=== PATIENT | female | born 1955 | race Caucasian/White ===

== ENCOUNTER 2017-01-27 20:22 | Emergency (ER) | payer OTHER ==
--- NOTE | ~2017-01-27 | CT16 ---
[facility] A Service [facility] RADIOLOGY TEXT RESULTS PATIENT: IGNACIO YAN LOCATION: [facility] : 57 UNIT #: [id number] AGE: [address]: Armen Ryder MD SEX: F ORDER DR: [id number] [place], [place] [address] [id number] E MR#: [id number] Acc #: [id number] NAME: IGNACIO YAN : 1955 SEX: F STUDY DATE/TIME: 01/28/2017 0:23 UNIT: [facility] ROOM: STUDY DESCRIPTION: CT Angio Chest for PE Attending Physician: Armen Ryder M.D. Ordering Physician: Armen Ryder M.D. Primary Care Physician: Primary Care Physician No MEDICAL IMAGING REPORT This report is preliminary unless electronic signature is present EXAM CTA chest PE protocol INDICATION Chest pain and cough since this morning. PROCEDURE Contrast-enhanced CTA chest attention on opacification of pulmonary arteries. Coronal 3-D MIP sagittal reformatted images reconstructed and submitted. This CT exam was performed with one or more of the following radiation dose reduction techniques: automatic exposure control, adjustment of mA and/or kV according to patient size, and iterative reconstruction. COMPARISON None. FINDINGS No evidence for pulmonary embolus. No evidence for acute aortic injury. No adenopathy. Mild to moderate centrilobular emphysema. No dense consolidation, pleural fluid or pneumothorax. No acute findings in the included upper abdomen. No aggressive appearing bone lesion. IMPRESSION No evidence for pulmonary embolus or other acute finding in the chest. Dictated by... Caio Mejía M.D. THIS IS AN ELECTRONICALLY VERIFIED REPORT [facility] A Service [facility] RADIOLOGY TEXT RESULTS PATIENT: IGNACIO YAN LOCATION: [facility] : 57 UNIT #: [id number] AGE: [address]: Armen Ryder MD SEX: F ORDER DR: Caio Mejía M.D. at 01/28/2017 10:01 PM MIRA/bryson TD: 01/28/2017 01:44 JOB #: [id number] MEDICAL IMAGING REPORT Page 1 of 1 COPY
--- NOTE | ~2017-01-27 | EKG ---
PATIENT: IGNACIO YAN UNIT #: [id number] Ventricular Rate: 86 BPM Atrial Rate: 86 BPM P-R Interval: 146 ms QRS Duration: 74 ms Q-T Interval: 392 ms QTC Calculation(Bezet): 469 ms P [place]: 49 degrees Calculated R [place]: 60 degrees Calculated T [place]: 45 degrees Diagnosis Line: Normal sinus rhythm Diagnosis Line: Normal ECG Diagnosis Line: When compared with ECG of 12-JUN-2015 12:01, Diagnosis Line: T wave inversion no longer evident in Inferior Diagnosis Line: leads Diagnosis Line: Confirmed by LINUS QUEZADA MD ([id number]) on 01/29/2017 Diagnosis Line: 5:36:35 AM INTERPRETING MD: DAMIEN MARTINEZ
--- NOTE | ~2017-01-27 | CR72 ---
[facility] A Service of [facility] RADIOLOGY TEXT RESULTS PATIENT: IGNACIO YAN LOCATION: [facility] : 57 UNIT #: [id number] AGE: [address]: Armen Ryder MD SEX: F ORDER DR: [id number] [facility] [address] [place], [place] [address] [id number] E MR#: [id number] Acc #: [id number] NAME: IGNACIO YAN : 1955 SEX: F STUDY DATE/TIME: 01/27/2017 20:52 UNIT: [facility] ROOM: STUDY DESCRIPTION: CR Chest Single View Portable Attending Physician: Armen Ryder M.D. Ordering Physician: Armen Ryder M.D. Primary Care Physician: Primary Care Physician No MEDICAL IMAGING REPORT This report is preliminary unless electronic signature is present EXAM Portable chest, 01/27/2017 HISTORY 61-year-old female with chest pain beginning today. COMPARISON Chest 09/05/2015 FINDINGS Frontal chest demonstrates clear lungs. No pleural effusion or pneumothorax. Heart size and mediastinum are normal. Pulmonary vasculature normal. IMPRESSION No acute cardiopulmonary findings. Dictated by... Ja Briscoe M.D. THIS IS AN ELECTRONICALLY VERIFIED REPORT Ja Briscoe M.D. at 01/28/2017 10:25 AM Andrews TD: 01/27/2017 21:52 JOB #: [id number] MEDICAL IMAGING REPORT Page 1 of 1 COPY
[~2017-01-27 20:22] MED LIST: ACETAMINOPHEN PO; ACETAMINOPHEN650 M1 PO; ACID CONTROL20 MG PO; ACID REDUCER20 MG PO; ALBUTEROL 0.5ML INH; AMARYL PO; ATARAX PO; BACTRIM DS TABL1 TA2 PO; BENTYL20 MG; BENZONATATE PO; BUSPAR5 MG PO; CEPHALEXIN500 M1 PO; CLOPIDOGREL75 MG PO; COLACE PO; COUMADIN2.5 MG PO; COUMADIN5 MG PO; CRESTOR40 MG PO; DAKIN'S MODIF1000 ML TOP; DIABETA5 M1 PO; DIS S; DOXYCYCLINE HY100 M1 PO; ESCITALOPRAM OX20 MG PO; FERRO-TIME325 MG PO; FLEXERIL PO; FLOMAX0.4 M1 PO; FLUOXETINE HCL20 M1; GABAPENTIN300 M2 PO; GLYBURIDE PO; GLYBURIDE2.5 M1 PO; GLYBURIDE2.5 MG PO; HUMALOG100 U/M2; HUMALOG100 U/M2 SUBQ; HYDROCODON-ACE1 EAC9 PO; INSULIN; IRON325 ( 651 PO; KEFLEX500 MG PO; LEVAQUIN PO; LEVEMIR FL100 UNIT/1 SUBQ; LEVEMIR SUBQ; LEXAPRO PO; LEXAPRO20 MG PO; LIPITOR PO; LOPRESSOR PO; LORTAB 5/500 TA1 TA1 PO; LOVENOX SUBQ; LOVENOX40 MG/0.4 INJ; METFORMIN PO; MIRALAX17 GM PO; NEURONTIN300 MG PO; NEXIUM; NEXIUM PO; NICODERM C1 PATCH .1 TD; NITROGYLCERIN SUBLINGUAL; NOVOLOG FL100 UNIT/1; PEPCID PO; PERCOCET 5-3251 TAB PO; PERCOCET5/325 PO; PLAVIX PO; PRAVACHOL20 MG PO; PREDNISONE PO; PRILOSEC PO; PROZAC PO; ROBITUSSIN A-C S5 ML PO; SIMVASTATIN40 MG PO; TRAZODONE HCL150 MG PO; VOLTAREN50 MG PO; WARFARIN SODIU2.5 M1 PO; ZITHROMAX PO; ZYRTEC PO; [UNRECOGNIZED DRUG - SUPPLY] EXT
[2017-01-27 22:00] LABS: POC - CKMB 1.1 ng/mL (0.0-7.9); POC - TROPONIN <0.05 ng/mL (<=0.05)
[2017-01-27 22:07] LABS: URINE SOURCE CLEAN CATCH
[2017-01-27 22:12] LABS: BASOPHIL# 0.2 X10e3 (0-0.3); BASOPHIL% 1.2 % (0-2.5); DIFF IND NO; EOSINOPHIL# 0.1 X10e3 (0-0.7); HEMATOCRIT 41.1 % (35.0-45.0); HEMOGLOBIN 13.5 gm/dL (12.0-16.0); LYMPHOCYTE# 4.3 X10e3 (1.0-3.5); LYMPHOCYTE% 31.9 % (17.0-45.0); MEAN CELL VOLUME 86.8 FL (83-96); MEAN CORPUSCULAR HEMOGLOBIN 28.5 PG (28-34); MEAN CORPUSCULAR HGB CONC 32.9 g/dL (30-36); MEAN PLATELET VOLUME 8.3 FL (6.5-11.5); MONOCYTE# 0.9 X10e3 (0-1.0); MONOCYTE% 6.5 % (3.0-12.0); NEUTROPHIL% 59.4 % (40-75); PLATELET COUNT 276 X10e3 (140-420); RED BLOOD COUNT 4.74 X10e (3.90-5.30); WHITE BLOOD COUNT 13.4 X10e3 (4.0-10.5)
[2017-01-27 22:17] LABS: URINE APPEARANCE CLEAR; URINE BILIRUBIN NEG (NEG); URINE BLOOD NEG (NEG); URINE COLOR YELLOW; URINE GLUCOSE 250 MG/DL (NEG); URINE KETONE NEG (NEG); URINE LEUKOCYTE ESTERASE NEG (NEG); URINE NITRATE NEG (NEG); URINE PH 7.5 (5-8); URINE PROTEIN NEG (NEG); URINE SPECIFIC GRAVITY 1.009 (1.003-1.035)
[2017-01-27 22:20] LABS: CULTURE INDICATED? NO
[2017-01-27 22:25] LABS: PARTIAL THROMBOPLASTIN TIME 24.3 SECONDS (23.5-31.3); PROTHROMBIN TIME (PATIENT) 10.8 SECONDS (10.0-11.7)
[2017-01-27 22:36] LABS: ALBUMIN SERUM 4.3 g/dL (3.5-5.0); BILIRUBIN, DIRECT 0.1 mg/dL (0.0-0.2); BILIRUBIN,INDIRECT 0.3 mg/dL (0.0-0.9); BILIRUBIN,TOTAL 0.4 mg/dL (0.2-2.0); BUN/CREATININE RATIO 23.33; CALCIUM SERUM 9.6 mg/dL (8.4-10.2); CREATININE SERUM 0.6 mg/dL (0.6-1.4); GLOM FILT RATE Estimated 99.1 mL/min (>60); POTASSIUM 3.4 mmol/L (3.5-5.1); PROTEIN TOTAL SERUM 7.9 g/dL (6.0-8.3)
[2017-01-27 23:56] LABS: POC - CKMB <1.0 ng/mL (0.0-7.9); POC - TROPONIN <0.05 ng/mL (<=0.05)
== END 2017-01-28 01:00 | disposition home or self-care (01) ==
LOC: CED 20:22
PROVIDERS: Emergency Medicine
DX: R07.9 Chest pain, unspecified (principal); R11.2 Nausea with vomiting, unspecified; E11.9 Type 2 diabetes mellitus without complications; Z86.718 Personal history of other venous thrombosis and embolism; F41.9 Anxiety disorder, unspecified; Z88.8 Allergy status to other drugs, medicaments and biological substances
CPT/HCPCS: 36415; 71010; 71275; 80048; 80076; 81003; 82553; 83690; 83880; 84484; 85025; 85610; 85730; 93005; 96361; 96374; 99285; J2405; Q9967

== ENCOUNTER 2017-03-12 00:22 | Emergency (ER) | payer OTHER ==
[~2017-03-12] VITALS: Ht 157.5 cm; Wt 61.2 kg
[2017-03-12] MEDS ORDERED: METFORMIN PO (00:58)
[2017-03-12] MEDS ORDERED: CLOPIDOGREL75 MG PO (00:58)
[2017-03-12] MEDS ORDERED: CHOLESTEROL MED (00:58)
== END 2017-03-12 01:21 | disposition home or self-care (01) ==
LOC: SED 00:22
DX: S61.011A Laceration without foreign body of right thumb without damage to nail, initial encounter (principal); E11.9 Type 2 diabetes mellitus without complications; Z88.6 Allergy status to analgesic agent; Z23 Encounter for immunization; W26.0XXA Contact with knife, initial encounter; Y93.G3 Activity, cooking and baking; Y92.009 Unspecified place in unspecified non-institutional (private) residence as the place of occurrence of the external cause
CPT/HCPCS: 12001; 90471; 90715; 99283